=== PATIENT | male | born 1990 | race Caucasian/White ===

== ENCOUNTER 2023-01-10 15:21 | Emergency (ER) | payer BC, SELFPAY ==
[2023-01-10 15:29] VITALS: BP 141/100; PULSE 84; RESP 18; TEMP 36.6; O2SAT 97; BMI 19.9
--- NOTE | 2023-01-10 16:11 | ED.GENADUL1 ---
HPI - General Adult General Chief complaint: Animal Bite Stated complaint: SPIDER BITE Time Seen by Provider: 01/10/23 16:09 Source: patient Mode of arrival: walk-in Limitations: no limitations History of Present Illness HPI narrative: patient is a 32-year-old male who presents to the emergency department for a small, swollen red area to the left forearm. He states he thinks he may been bitten by an insect. He states the area has not been pruritic or painful. There has been only minimal drainage. He denies any fevers, abdominal cramping, vomiting. He went to urgent care but they noticed a faint red streak up the forearm and he was referred to the Emergency Room. No medications taken prior to arrival. Related Data Previous Rx's Medication Instructions Recorded cephalexin 500 mg capsule 500 mg PO Q8H 10 days #30 caps 01/10/23 ondansetron 4 mg disintegrating 4 mg PO Q6H PRN nausea and 01/10/23 tablet vomiting #12 tabs prednisone 20 mg tablet 60 mg PO DAILY 2 days #6 tabs 01/10/23 sulfamethoxazole 800 1 tab PO DAILY 10 days #10 tabs 01/10/23 mg-trimethoprim 160 mg tablet (Bactrim DS) Allergies Allergy/AdvReac Type Severity Reaction Status Date / Time No Known Drug Allergies Allergy Verified 01/10/23 15:31 Review of Systems ROS Constitutional Denies: fever or chills Ears, nose, mouth, and throat Denies: throat pain Cardiovascular Denies: chest pain Respiratory Denies: shortness of breath or cough Gastrointestinal Denies: nausea or vomiting Integumentary/Breast Reports: skin swelling Neurological Denies: headache Allergic/Immunologic Denies: hives Exam Narrative Exam Narrative: Gen.: Awake, alert, in no distress Head: Normocephalic, atraumatic ENT: Moist mucous membranes Respiratory: No respiratory distress Extremities: Moves extremities equally Psych: Normal mood and affect Neuro: No focal neuro deficit Skin: Warm, dry, 3 cm swollen, erythematous area to the left forearm, radial aspect distally. Central scabbed puncture wound with no fluctuance. Patient is noted to have no circumferential erythema of the forearm. 2+ left radial pulse. There is a faint red streak extending minimally up the volar forearm to the antecubital area. No circumferential erythema noted of the forearm proximally. Constitutional Vital Signs, click to edit/add: Last Vital Signs Temp 97.8 F 01/10/23 15:29 Pulse 84 01/10/23 15:29 Resp 18 01/10/23 15:29 BP 141/100 H 01/10/23 15:29 Pulse Ox 97 01/10/23 15:29 Course Vital Signs Vital signs: Vital Signs Temperature 97.8 F 01/10/23 15:29 Pulse Rate 84 01/10/23 15:29 Respiratory Rate 18 01/10/23 15:29 Blood Pressure 141/100 H 01/10/23 15:29 Pulse Oximetry 97 01/10/23 15:29 Temperature 97.8 F 01/10/23 15:29 Pulse Rate 84 01/10/23 15:29 Respiratory Rate 18 01/10/23 15:29 Blood Pressure 141/100 H 01/10/23 15:29 Pulse Oximetry 97 01/10/23 15:29 Medical Decision Making MDM Narrative Medical decision making narrative: exam is consistent with insect bite, mild cellulitis and early lymphangitis. Patient with stable vital signs, no fevers or tachycardia. He has no other systemic complaints of vomiting, abdominal cramping. Work note provided for today and tomorrow. Patient treated with intramuscular Ancef in the Emergency Room and discharged home with Keflex, Bactrim. He is also given three days of steroids. Follow-up with PCP and return to the Emergency Room if symptoms change or worsen. Encouraged warm compresses. Medical Records Medical records reviewed: Yes I reviewed the patient's medical records Discharge Plan Discharge Chief Complaint: Animal Bite Clinical Impression: Cellulitis, Lymphangitis, Insect bite Patient Disposition: Home, Self-Care Time of Disposition Decision: 16:17 Condition: Good Prescriptions / Home Meds: New sulfamethoxazole-trimethoprim [Bactrim DS] 800-160 mg tablet 1 tab PO DAILY 10 Days Qty: 10 0RF cephalexin 500 mg capsule 500 mg PO Q8H 10 Days Qty: 30 0RF prednisone 20 mg tablet 60 mg PO DAILY 2 Days Qty: 6 0RF ondansetron 4 mg tablet,disintegrating 4 mg PO Q6H PRN (Reason: nausea and vomiting) Qty: 12 0RF Instructions: Cellulitis (ED) Stand Alone Forms: Portal Instructions Referrals: Physician,Non-Staff, MD [Primary Care Provider] - 1 week
[2023-01-10] MEDS: CEFAZOLIN SODIUM 1,000 MG VIAL 1000 MG IM (16:23)
[2023-01-10] MEDS: SULFAMETHOXAZOLE/TRIMETHOPRIM 800-160 MG TABLET 1 TAB PO (16:23)
[2023-01-10] MEDS: PREDNISONE 20 MG TABLET 60 MG PO (16:23)
== END 2023-01-10 16:33 | disposition home or self-care (01) ==
PROVIDERS: Emergency Provider Emergency Medicine
DX: S50.862A Insect bite (nonvenomous) of left forearm, initial encounter (principal); L03.114 Cellulitis of left upper limb; W57.XXXA Bitten or stung by nonvenomous insect and other nonvenomous arthropods, initial encounter
CPT/HCPCS: 96372; 99284